=== PATIENT | female | born 1970 | race Caucasian/White ===

== ENCOUNTER 2018-09-23 18:30 | Emergency (ER) | payer BC ==
[~2018-09-23] VITALS: Ht 170.2 cm; Wt 59.0 kg
[2018-09-23] MEDS ORDERED: METOCLOPRAMIDE HCL 10 MG/2 ML VIAL IV ONE (20:00)
[2018-09-23] MEDS ORDERED: KETOROLAC TROMETHAMINE 15 MG INJ IV ONE (20:00)
[2018-09-23] MEDS ORDERED: IV NORMAL SALINE 1000 ML BAG IV ONE (20:00)
[2018-09-23] MEDS ORDERED: KETOROLAC TROMETHAMINE 15 MG INJ ONE (20:14)
[2018-09-23] MEDS ORDERED: METOCLOPRAMIDE HCL 10 MG/2 ML VIAL ONE (20:14)
[2018-09-23 20:16] LABS: BASOPHILS % (AUTO) 0.2 % (0.0-2.0); HEMOGLOBIN 12.6 g/dL (10.9-14.3); LYMPHOCYTES % (AUTO) 17.5 % (20.5-51.5); MEAN CORPUSCULAR HEMOGLOBIN 31.5 uug (24.7-32.8); MEAN CORPUSCULAR HGB CONC 35 g/dL (32.3-35.6); MONOCYTES % (AUTO) 18.7 % (0.0-11.0); NEUTROPHILS # (AUTO) 3.5 K/uL (1.8-8.9); NEUTROPHILS % (AUTO) 63.6 % (38.5-71.5); PLATELET COUNT (AUTO) 183 K/uL (179-408); WHITE BLOOD COUNT (AUTO) 5.6 K/uL (3.8-11.8)
[2018-09-23 20:20] LABS: CREATININE 0.6 mg/dL (0.6-1.3); POTASSIUM 3.2 mmol/L (3.5-5.1)
[2018-09-23 20:24] LABS: NEUTROPHILS % (MANUAL) 0 % (42-75)
[2018-09-23 20:33] LABS: BILIRUBIN,DIRECT 0.2 mg/dL (0.0-0.2); BILIRUBIN,TOTAL 0.6 mg/dL (0.2-1.0); TOTAL PROTEIN, SERUM 7.7 g/dL (6.4-8.2)
--- NOTE | 2018-09-23 20:33 | NUR ---
Ultrasound at bedside
--- NOTE | 2018-09-23 22:18 | NUR ---
IV removed. Catheter intact and site benign. Pressure and 4x4 gauze applied to site. No bleeding noted.
--- NOTE | 2018-09-23 22:18 | NUR ---
Patient discharged to home in stable conditon. Written and verbal after care instructions given. Patient verbalizes understanding of instructions. Pt ambulated out of ER in steady gait with . All belongings with pt. VSS. NAD noted. PO Challenge well tolerated. Pt states she feels much better.
[2018-09-23 22:30] VITALS: BP 126/68
== END 2018-09-23 22:32 | disposition home or self-care (01) ==
LOC: EDSEX 18:34 → ER 18:34
DX: E86.0 Dehydration (principal)
CPT/HCPCS: 36415; 76705; 80048; 80076; 83605; 83690; 84484; 84702; 85025; 87040 ×2; 87400; 93005; 96361; 96374; 96375; 99284; J1885; J2765; 70030-TC; A4663; J7030

== ENCOUNTER 2022-05-30 18:43 | Emergency (ER) | payer BC ==
[~2022-05-30] VITALS: Ht 167.6 cm; Wt 60.8 kg
--- NOTE | 2022-05-30 19:01 | NUR ---
Patient is in the ER waiting room, sitting comfortably on a chair, pending triage, nursing SBAR given to incoming medical charge entry specialist/triage nurse Damion.
--- NOTE | 2022-05-30 19:22 | NUR ---
AFTER BEING TRIAGED, PATIENT STATES "I FEEL BETTER, I DON'T WANT TO BE SEEN ANYMORE BY THE DOCTOR." PATIENT LEFT WITHOUT BEING SEEN BY ERMD.
== END 2022-05-30 19:22 | disposition left against medical advice (07) ==
LOC: ER 18:44
DX: Z53.21 Procedure and treatment not carried out due to patient leaving prior to being seen by health care provider (principal)